=== PATIENT | female | born 1960 | race Caucasian/White ===

== ENCOUNTER 2020-06-01 03:44 | Inpatient (IN) | payer MEDICARE, MEDICAID ==
[~2020-06-01] VITALS: Ht 160 cm; Wt 103.6 kg
[2020-06-01] MEDS ORDERED: ONDANSETRON HCL 4MG/2ML INJ IV STA (04:19)
[2020-06-01] MEDS ORDERED: SODIUM CHLORIDE 0.9% 1,000 ML IV ONE (04:19)
[2020-06-01] MEDS ORDERED: ACETAMINOPHEN 325MG TABLET PO STA (04:19)
[2020-06-01] MEDS ORDERED: CEFTRIAXONE 1 G PREMIX 50 ML IV ONE (04:30)
[2020-06-01] MEDS ORDERED: AZITHROMYCIN 500 MG in DEXT 5% WATER 250 ML IV ONE (04:30)
[2020-06-01 04:40] LABS: BASOPHILS % 1.3 % (0.0-2.0); HEMATOCRIT. 40.2 % (36.0-48.0); HEMOGLOBIN. 13.6 g/dL (12.0-16.0); LYMPHOCYTES % 23.3 % (20.0-50.0); MEAN CORPUSCULAR HEMOGLOBIN 30.1 pg (28.0-32.0); MEAN CORPUSCULAR VOLUME 89.2 fL (81.0-99.0); MEAN PLATELET VOLUME 8.9 fl (7.4-10.4); MONOCYTES % 7.4 % (2.0-8.0); PLATELET 194 x1000/uL (130-400); RED CELL DISTRIBUTION WIDTH 13.7 % (11.6-14.6)
[2020-06-01 04:48] LABS: CHLORIDE 109 mEq/L (98-107)
[2020-06-01 04:50] LABS: PROTHROMBIN TIME 10.8 sec (9.6-11.0)
[2020-06-01 05:02] LABS: BG CARBOXYHEMOGLOBIN 0.5 % (0.5-1.5); BG DEOXYHEMOGLOBIN 5.1 % (0.0-5.0); BG FRACTION INSPIRED OXYGEN 32; BG HCO3 ACT 23.1 mmol/L (22.0-26.0); BG METHEMOGLOBIN 0.4 % (0.0-1.5); BG OXYGEN SATURATION 94.9 % (92.0-98.5); BG PCO2 33.2 mmHg (35.0-45.0); BG PH 7.461 (7.350-7.450); BG PO2 69.8 mmHg (75.0-100.0); BG SAMPLE SITE LEFT RADIAL; BG TOTAL HEMOGLOBIN 14.1 g/dL (12.0-18.0); BG VENT MODE NASAL CANNULA
[2020-06-01 08:20] VITALS: BP 128/70
[2020-06-01] MEDS ORDERED: CEFTRIAXONE 1 G PREMIX 50 ML IV SCH (09:00)
[2020-06-01] MEDS ORDERED: ONDANSETRON HCL 4MG/2ML INJ IV PRN (09:00)
[2020-06-01] MEDS ORDERED: POTASSIUM CHLORIDE 20MEQ TABLET SR PO SCH (09:00)
[2020-06-01] MEDS ORDERED: ACETAMINOPHEN 325MG TABLET PO PRN (09:00)
[2020-06-01] MEDS: DEXAMETHASONE 4MG TABLET PO SCH (10:02)
[2020-06-01 10:13] LABS: CLARITY URINE CLOUDY (CLEAR); COLOR URINE DARK YELLOW (YELLOW); KETONES URINE 1+ (NEGATIVE); LEUKOCYTE ESTERASE URINE 2+ (NEGATIVE); NITRITE URINE NEGATIVE (NEGATIVE); OCCULT BLOOD URINE NEGATIVE (NEGATIVE); PROTEIN URINE 1+ (NEGATIVE); SPECIFIC GRAVITY URINE 1.021 (1.005-1.030)
[2020-06-01 10:32] VITALS: BP 128/70
[2020-06-01 12:00] VITALS: BP 131/67
[2020-06-01] MEDS: BLOOD SUGAR DIAGNOSTIC STRIP TEST SCH ×3 (12:40→21:29)
[2020-06-01] MEDS ORDERED: DEXTROSE 50% WATER 50ML SYRINGE IV PRN (12:45)
[2020-06-01] MEDS: INSULIN LISPRO 100 UNITS/ML SUBCUT SCH ×3 (13:10→21:29)
[2020-06-01] MEDS: ALBUTEROL 6.7GM HFA INHALER ORI SCH ×2 (13:23→21:42)
[2020-06-01] MEDS ORDERED: INSULIN GLARGINE UD 100 UNITS/ML SYR SUBCUT SCH (14:00)
[2020-06-01] MEDS: ENOXAPARIN 100MG/ML SYR SUBCUT SCH ×2 (15:27→23:10)
[2020-06-01 16:00] VITALS: BP 128/75
[2020-06-01] MEDS ORDERED: IBUP-2030 PO (16:01)
[2020-06-01 20:20] VITALS: BP 132/65
[2020-06-01] MEDS: INSULIN GLARGINE UD 100 UNITS/ML SYR SUBCUT SCH (21:29)
[2020-06-02] VITALS (7 sets, daily range): BP systolic 117–136; BP diastolic 52–70
[2020-06-02] MEDS: ALBUTEROL 6.7GM HFA INHALER ORI SCH ×4 (03:30→13:50)
[2020-06-02] MEDS: CEFTRIAXONE 1,000 MG in DEXTROSE 5% WATER 50 ML IV SCH (04:38)
[2020-06-02] MEDS: BLOOD SUGAR DIAGNOSTIC STRIP TEST SCH ×4 (07:35→21:19)
[2020-06-02 07:57] LABS: BG BASE EXCESS -1.5 mmol/L (-2.0-2.0); BG CARBOXYHEMOGLOBIN 0.4 % (0.5-1.5); BG DEOXYHEMOGLOBIN 4.7 % (0.0-5.0); BG HCO3 ACT 22.3 mmol/L (22.0-26.0); BG METHEMOGLOBIN 0.3 % (0.0-1.5); BG OXYGEN SATURATION 95.3 % (92.0-98.5); BG OXYHEMOGLOBIN 94.6 % (94.0-97.0); BG PCO2 34.9 mmHg (35.0-45.0); BG PH 7.424 (7.350-7.450); BG PO2 75.8 mmHg (75.0-100.0); BG SAMPLE SITE LEFT RADIAL; BG TOTAL HEMOGLOBIN 12.6 g/dL (12.0-18.0); BG VENT MODE NASAL CANNULA
[2020-06-02] MEDS: INSULIN LISPRO 100 UNITS/ML SUBCUT SCH ×4 (07:58→21:19)
[2020-06-02] MEDS: AZITHROMYCIN 250 MG TABLET PO SCH (07:59)
[2020-06-02] MEDS: DEXAMETHASONE 4MG TABLET PO SCH (08:00)
[2020-06-02] MEDS: ENOXAPARIN 100MG/ML SYR SUBCUT SCH ×2 (08:00→21:18)
[2020-06-02] MEDS: INSULIN GLARGINE UD 100 UNITS/ML SYR SUBCUT SCH ×2 (09:18→21:19)
[2020-06-02] MEDS ORDERED: LIDOCAINE HCL/PF 1% 2ML VIAL ONE (12:01)
[2020-06-02] MEDS ORDERED: DEX4 PO (13:50)
[2020-06-02] MEDS ORDERED: APIX5TAB MT (13:50)
[2020-06-02] MEDS ORDERED: DEXA4TAB PO (13:50)
[2020-06-02] MEDS ORDERED: ALBU6.7H9 ORI (13:50)
[2020-06-03] VITALS: BP 125/59
[2020-06-03] MEDS: ALBUTEROL 6.7GM HFA INHALER ORI SCH ×4 (00:12→17:06)
[2020-06-03 04:00] VITALS: BP 120/71
[2020-06-03] MEDS: CEFTRIAXONE 1,000 MG in DEXTROSE 5% WATER 50 ML IV SCH (04:22)
[2020-06-03] MEDS: BLOOD SUGAR DIAGNOSTIC STRIP TEST SCH ×3 (07:40→17:08)
[2020-06-03 08:00] VITALS: BP 154/70
[2020-06-03] MEDS: AZITHROMYCIN 250 MG TABLET PO SCH (08:40)
[2020-06-03] MEDS: ENOXAPARIN 100MG/ML SYR SUBCUT SCH (08:41)
[2020-06-03] MEDS: INSULIN LISPRO 100 UNITS/ML SUBCUT SCH ×3 (08:42→17:08)
[2020-06-03] MEDS ORDERED: DEXAMETHASONE 4MG TABLET PO SCH (09:00)
[2020-06-03] MEDS ORDERED: DEXAMETHASONE 2MG TABLET PO SCH (09:00)
[2020-06-03] MEDS: INSULIN GLARGINE UD 100 UNITS/ML SYR SUBCUT SCH (09:36)
[2020-06-03 12:00] VITALS: BP 136/60
[2020-06-03 16:00] VITALS: BP 132/64
== END 2020-06-03 17:37 | disposition home or self-care (01) | DRG 871 ==
LOC: ER 04:28 → 7WST 05:20 → ENRESERV 07:44 → 7WST 20:39
PROVIDERS: ADMIT Internal Medicine; ATTEND Internal Medicine
DX: A41.89 Other specified sepsis (principal); U07.1 COVID-19; J96.01 Acute respiratory failure with hypoxia; J12.89 Other viral pneumonia; E44.0 Moderate protein-calorie malnutrition; Z68.41 Body mass index [BMI] 40.0-44.9, adult; N39.0 Urinary tract infection, site not specified; E66.01 Morbid (severe) obesity due to excess calories; I10 Essential (primary) hypertension; E11.9 Type 2 diabetes mellitus without complications; E87.6 Hypokalemia; E87.8 Other disorders of electrolyte and fluid balance, not elsewhere classified; J20.8 Acute bronchitis due to other specified organisms; R74.0 Nonspecific elevation of levels of transaminase and lactic acid dehydrogenase [LDH]
CPT/HCPCS: 36415; 36600; 71045; 80053; 81003; 82375; 82728; 82805; 82962; 83036; 83605; 83880; 84145; 84484; 85025; 85379; 86140; 87077; 87186; 87635; 93005; 94640; 99291; J0456; J0696; J1650; J1815; J2405; J3490; J7030; J7060; J8540